=== PATIENT | female | born 1955 | race Caucasian/White ===

== ENCOUNTER 2023-01-21 16:44 | Emergency (ER) | payer BC, OTHER ==
[~2023-01-21] VITALS: Ht 167.6 cm; Wt 79.4 kg
[2023-01-21 16:57] VITALS: BP_SYST 138
--- NOTE | 2023-01-21 19:20 | NUR ---
URINE SAMPLE COLLECETED AND SENT TO LAB.
--- NOTE | 2023-01-21 19:30 | NUR ---
DR. LATIF WITH PATIENT IN TRIAGE.
[2023-01-21 19:38] LABS: EOSINOPHILS # (AUTO) 0.1 K/uL (0.0-0.4); EOSINOPHILS % (AUTO) 2.2 % (0.0-4.0); HEMATOCRIT 39.8 % (36-48); HEMOGLOBIN 13.4 g/dL (12.0-16.0); LYMPHOCYTES # (AUTO) 1.8 K/uL (1.0-5.5); LYMPHOCYTES % (AUTO) 42.7 % (20.5-51.5); MEAN CORPUSCULAR HEMOGLOBIN 31 pg (27-31); MEAN CORPUSCULAR HGB CONC 34 % (32-36); MEAN CORPUSCULAR VOLUME 92 fL (79.0-98.0); MONOCYTES # (AUTO) 0.6 K/uL (0.0-1.0); MONOCYTES % (AUTO) 13.3 % (1.7-9.3); NEUTROPHILS # (AUTO) 1.7 K/uL (1.8-7.7); NEUTROPHILS % (AUTO) 40.8 % (40.0-70.0); PLATELET COUNT (AUTO) 229 K/uL (130-430); RED BLOOD CELL COUNT(AUTO) 4.34 MIL/uL (4.2-6.2); RED CELL DISTRIBUTION WIDTH 13.3 % (9.0-15.0); WHITE BLOOD COUNT (AUTO) 4.2 K/uL (4.8-10.8)
[2023-01-21 19:49] LABS: ALBUMIN 3.5 g/dL (3.4-4.8); CALCIUM 8.6 mg/dL (8.4-11.0); CREATININE 0.79 mg/dL (0.55-1.30); TOTAL BILIRUBIN 0.5 mg/dL (0.0-1.0)
[2023-01-21 20:30] LABS: BILIRUBIN,URINE NEGATIVE (NEGATIVE); BLOOD, URINE NEGATIVE (NEGATIVE); CLARITY/URINE CLEAR (CLEAR); COLOR,URINE YELLOW (YELLOW); GLUCOSE,URINE NEGATIVE (NEGATIVE); KETONES,URINE 1+ (NEGATIVE); LEUKOCYTE ESTERASE ,URINE NEGATIVE (NEGATIVE); NITRITE, URINE NEGATIVE (NEGATIVE); PROTEIN URINE NEGATIVE (NEGATIVE); UROBILINOGEN,URINE 0.2 (0.2-1.0)
[2023-01-21] MEDS ORDERED: DICY10CA13 PO (21:04)
[2023-01-21] MEDS ORDERED: AZIT500T10 PO (21:04)
[2023-01-21] MEDS ORDERED: CEPH-548 PO (21:04)
[2023-01-21] MEDS ORDERED: FAMO-132 PO (21:04)
[2023-01-21] MEDS ORDERED: OXYC-128 PO (21:06)
[2023-01-21 21:20] VITALS: BP_SYST 138
--- NOTE | 2023-01-21 21:20 | NUR ---
Patient given written and verbal discharge instructions BY DR. LATIF and verbalizes understanding. ER DR. LATIF discussed with patient the results and treatment provided. Patient in stable condition. ID arm band removed. Rx of ZITHROMAX, CEPHALEXIN, DICYCLOMINE, PEPCID, PERCOCET given. Patient educated on pain management and to follow up with PMD. Pain Scale 0. Opportunity for questions provided and answered. Medication side effect fact sheet provided. PT D/C BY .
== END 2023-01-21 21:20 | disposition home or self-care (01) ==
LOC: SED 16:44
DX: K59.00 Constipation, unspecified (principal); R10.11 Right upper quadrant pain; K57.90 Diverticulosis of intestine, part unspecified, without perforation or abscess without bleeding; J18.1 Lobar pneumonia, unspecified organism; I10 Essential (primary) hypertension; Z87.81 Personal history of (healed) traumatic fracture; Z79.899 Other long term (current) drug therapy
CPT/HCPCS: 36415; 71045; 76376; 76705; 80053; 81003; 83605; 83690; 85025; 87040; 87086; 99285